=== PATIENT | male | born 1985 | race Caucasian/White ===

== ENCOUNTER 2018-11-16 03:28 | Inpatient (IN) | payer MEDICARE, OTHER ==
[2018-11-15 23:52] LABS: ADD MAN DIFF? NO
[2018-11-15] MEDS: ACETAMINOPHEN 325 MG TAB PO (23:53)
[2018-11-15] MEDS: SODIUM CHLORIDE 0.9% 1L BAG IV* (23:53)
[2018-11-15 23:56] LABS: ABNORMAL IP MESSAGE 1; BASOPHILS % 0.1 % (0.0-2.0); EOSINOPHILS # 0.1 10^3/ul (0.0-0.5); HEMATOCRIT 29.1 % (42.0-52.0); HEMOGLOBIN 9.3 g/dl (14.0-18.0); LYMPHOCYTES # 0.3 10^3/ul (0.8-2.9); MEAN CORPUSCULAR HEMOGLOBIN 28.8 pg (29.0-33.0); MEAN CORPUSCULAR VOLUME 90.1 fl (82.0-101.0); MEAN PLATELET VOLUME 10.3 fl (7.4-10.4); MONOCYTE # 0.6 10^3/ul (0.3-0.9); MONOCYTES % 7.8 % (0.0-11.0); NEUTROPHIL # 6.9 10^3/ul (1.6-7.5); NEUTROPHILS % 86.8 % (39.0-77.0); PLATELET COUNT 110 10^3/UL (140-415); POSITIVE DIFF @See below; RED BLOOD COUNT 3.23 10^6/ul (4.70-6.10); RED CELL DISTRIBUTION WIDTH 13.6 % (11.5-14.5)
[2018-11-16 00:15] LABS: PROTIME 14.3 Sec (11.9-14.9); PT RATIO 1.1
[2018-11-16 00:16] LABS: PARTIAL THROMBOPLASTIN TIME 36.7 Sec (23.0-35.0)
[2018-11-16 00:39] LABS: ANION GAP 13 (5-13); BLOOD UREA NITROGEN 45 mg/dl (7-20); CALCIUM 8.1 mg/dl (8.4-10.2); CARBON DIOXIDE 30 mmol/L (21-31); CHLORIDE 100 mmol/L (97-110); CREATININE 8.32 mg/dl (0.61-1.24); Estimated GFR 7 mL/min (>60); GLUCOSE 98 mg/dl (70-220); POTASSIUM 4.6 mmol/L (3.5-5.1); SODIUM 143 mmol/L (135-144)
[2018-11-16] MEDS: ALBUTEROL 0.083% (NEB) 2.5 MG/3 ML AMP NEB (00:52)
[2018-11-16] MEDS: IPRATROPIUM (NEB) 0.5 MG/2.5 ML AMP NEB (00:52)
[2018-11-16] MEDS: IBUPROFEN 800 MG TAB PO (01:22)
[2018-11-16] MEDS: PIPER-TAZO 3.375 GM IV (PMX) 100 ML IVPB (02:22)
[2018-11-16] MEDS: VANCOMYCIN 1 GM (PMX) 250 ML IVPB (02:23)
[~2018-11-16 03:28] MED LIST: BISACODYL (EC) 5 MG TAB PO; DOCUSATE SODIUM 100 MG CAP PO; NACL 0.9% 3 ML SYG IV; ONDANSETRON 4 MG INJ IV
[2018-11-16 04:26] LABS: LACTIC ACID 0.8 mmol/L (0.5-2.0)
[2018-11-16 05:14] LABS: B-TYPE NATRIURETIC PEPTIDE 61000 PG/ML (0-125)
[2018-11-16] MEDS: PIPER-TAZO 2.25 GM (PMX) 50 ML IVPB ×3 (06:13→22:13)
[2018-11-16] MEDS: HEPARIN 5,000 UNIT/1 ML VIAL SC ×3 (06:13→22:20)
[2018-11-16] MEDS ORDERED: CALCIUM ACETATE 667 MG CAP GTB (07:35)
[2018-11-16] MEDS ORDERED: CALCIUM ACETATE 667 MG CAP PO (07:35)
[2018-11-16] MEDS: CALCIUM ACETATE 667 MG CAP PO ×3 (08:31→17:25)
[2018-11-16] MEDS: hydrALAzine 20 MG INJ IV (08:32)
[2018-11-16] MEDS: LEVALBUTEROL (NEB) 1.25 MG/0.5 ML AMP HHN ×3 (08:42→21:09)
[2018-11-16 12:15] LABS: HEPATITIS B SURFACE ANTIGEN NEGATIVE (NEGATIVE)
[2018-11-16] MEDS: ACETAMINOPHEN 325 MG TAB PO (14:04)
[2018-11-16] MEDS ORDERED: VANCOMYCIN IV PER PHARMACY XX (15:00)
[2018-11-16] MEDS: IBUPROFEN 400 MG TAB PO (15:25)
[2018-11-16] MEDS: VANCOMYCIN 500 MG (PMX) 100 ML IVPB (15:26)
[2018-11-16] MEDS: METOPROLOL (XL) 25 MG TAB PO ×2 (15:26→20:50)
[2018-11-16] MEDS ORDERED: METOPROLOL (XL) 25 MG TAB PO (21:00)
[2018-11-17] MEDS: LEVALBUTEROL (NEB) 1.25 MG/0.5 ML AMP HHN ×4 (02:21→21:26)
[2018-11-17] MEDS: ACETAMINOPHEN 325 MG TAB PO ×3 (02:57→21:52)
[2018-11-17 03:50] LABS: ADD MAN DIFF? NO
[2018-11-17 04:14] LABS: ABNORMAL IP MESSAGE 1; BASOPHILS % 0.2 % (0.0-2.0); EOSINOPHILS % 0.2 % (0.0-7.0); HEMATOCRIT 26.2 % (42.0-52.0); HEMOGLOBIN 8.6 g/dl (14.0-18.0); LYMPHOCYTES # 0.2 10^3/ul (0.8-2.9); LYMPHOCYTES % 4.6 % (15.0-51.0); MEAN CORPUSCULAR HEMOGLOBIN 29.1 pg (29.0-33.0); MEAN CORPUSCULAR HGB CONC 32.8 g/dl (32.0-37.0); MEAN CORPUSCULAR VOLUME 88.5 fl (82.0-101.0); MEAN PLATELET VOLUME 10.6 fl (7.4-10.4); MONOCYTE # 0.3 10^3/ul (0.3-0.9); MONOCYTES % 6.8 % (0.0-11.0); NEUTROPHIL # 4.4 10^3/ul (1.6-7.5); NEUTROPHILS % 87.8 % (39.0-77.0); PLATELET COUNT 91 10^3/UL (140-415); POSITIVE DIFF @See below; RED BLOOD COUNT 2.96 10^6/ul (4.70-6.10); RED CELL DISTRIBUTION WIDTH 13.9 % (11.5-14.5)
[2018-11-17 04:41] LABS: LACTIC ACID 1.1 mmol/L (0.5-2.0)
[2018-11-17 04:42] LABS: ANION GAP 16 (5-13); BLOOD UREA NITROGEN 42 mg/dl (7-20); CALCIUM 9.2 mg/dl (8.4-10.2); CARBON DIOXIDE 30 mmol/L (21-31); CHLORIDE 94 mmol/L (97-110); CREATININE 8.94 mg/dl (0.61-1.24); Estimated GFR 7 mL/min (>60); GLUCOSE 123 mg/dl (70-220); POTASSIUM 4.9 mmol/L (3.5-5.1); SODIUM 140 mmol/L (135-144)
[2018-11-17] MEDS: PIPER-TAZO 2.25 GM (PMX) 50 ML IVPB ×3 (05:27→21:51)
[2018-11-17] MEDS: HEPARIN 5,000 UNIT/1 ML VIAL SC ×3 (05:30→21:58)
[2018-11-17 06:51] LABS: ADD MAN DIFF? NO
[2018-11-17 06:57] LABS: WHITE BLOOD COUNT 4.9 10^3/ul (4.8-10.8)
[2018-11-17 06:57] LABS: ABNORMAL IP MESSAGE 1; BASOPHILS % 0.2 % (0.0-2.0); EOSINOPHILS % 0.2 % (0.0-7.0); HEMATOCRIT 26.4 % (42.0-52.0); HEMOGLOBIN 8.6 g/dl (14.0-18.0); LYMPHOCYTES # 0.2 10^3/ul (0.8-2.9); LYMPHOCYTES % 3.2 % (15.0-51.0); MEAN CORPUSCULAR HEMOGLOBIN 29.1 pg (29.0-33.0); MEAN CORPUSCULAR HGB CONC 32.6 g/dl (32.0-37.0); MEAN CORPUSCULAR VOLUME 89.2 fl (82.0-101.0); MEAN PLATELET VOLUME 10.4 fl (7.4-10.4); MONOCYTE # 0.4 10^3/ul (0.3-0.9); MONOCYTES % 8.7 % (0.0-11.0); NEUTROPHIL # 4.3 10^3/ul (1.6-7.5); NEUTROPHILS % 87.3 % (39.0-77.0); PLATELET COUNT 91 10^3/UL (140-415); POSITIVE DIFF @See below; RED BLOOD COUNT 2.96 10^6/ul (4.70-6.10)
[2018-11-17 07:22] LABS: ALANINE AMINOTRANSFERASE 32 IU/L (13-69); ALBUMIN 3.9 g/dl (3.3-4.9); ALBUMIN/GLOBULIN RATIO 1.44; ALKALINE PHOSPHATASE 55 IU/L (42-121); ANION GAP 15 (5-13); ASPARTATE AMINO TRANSFERASE 32 IU/L (15-46); BILIRUBIN,INDIRECT 0.2 mg/dl (0-1.1); BILIRUBIN,TOTAL 0.2 mg/dl (0.2-1.3); BLOOD UREA NITROGEN 43 mg/dl (7-20); CALCIUM 9.2 mg/dl (8.4-10.2); CARBON DIOXIDE 30 mmol/L (21-31); CHLORIDE 94 mmol/L (97-110); CHOL/HDL RATIO 2.8 RATIO; CHOLESTEROL 101 mg/dl (100-200); CREATININE 9.35 mg/dl (0.61-1.24); Estimated GFR 6 mL/min (>60); GLUCOSE 115 mg/dl (70-220); HDL CHOLESTEROL 35 mg/dl (28-63); LDL CHOLESTEROL,CALCULATED 52 mg/dl; POTASSIUM 5.3 mmol/L (3.5-5.1); SODIUM 139 mmol/L (135-144); TOTAL PROTEIN 6.6 g/dl (6.1-8.1); TRIGLYCERIDES 68 mg/dl (0-149)
[2018-11-17 07:49] LABS: THYROID STIMULATING HORMONE 0.474 MIU/L (0.465-4.680)
[2018-11-17 07:58] LABS: HEMOGLOBIN A1C 5.3 % (0-5.9)
[2018-11-17] MEDS: METOPROLOL (XL) 25 MG TAB PO ×3 (08:30→22:20)
[2018-11-17] MEDS: CALCIUM ACETATE 667 MG CAP PO ×3 (08:31→17:30)
[2018-11-17] MEDS: NIFEdipine (XL) 30 MG TAB PO (09:30)
[2018-11-17 10:31] LABS: LACTIC ACID 1.6 mmol/L (0.5-2.0)
[2018-11-17] MEDS ORDERED: IBUPROFEN 400 MG TAB PO (14:30)
[2018-11-17] MEDS ORDERED: LEVOFLOXACIN 250 MG TAB PO (14:30)
[2018-11-17] MEDS: LEVOFLOXACIN 500 MG TAB PO (15:11)
[2018-11-17] MEDS: EPOETIN 4000 UNITS/1 ML INJ (ESRD) IV (17:32)
[2018-11-17] MEDS ORDERED: METOPROLOL (XL) 50 MG TAB PO (21:00)
[2018-11-18] MEDS: LEVALBUTEROL (NEB) 1.25 MG/0.5 ML AMP HHN ×3 (01:30→14:11)
[2018-11-18 05:20] LABS: ADD MAN DIFF? NO
[2018-11-18 05:24] LABS: ABNORMAL IP MESSAGE 1; BASOPHILS % 0.3 % (0.0-2.0); EOSINOPHILS % 0.3 % (0.0-7.0); HEMATOCRIT 26.9 % (42.0-52.0); HEMOGLOBIN 8.9 g/dl (14.0-18.0); LYMPHOCYTES # 0.3 10^3/ul (0.8-2.9); MEAN CORPUSCULAR HEMOGLOBIN 29.1 pg (29.0-33.0); MEAN CORPUSCULAR HGB CONC 33.1 g/dl (32.0-37.0); MEAN CORPUSCULAR VOLUME 87.9 fl (82.0-101.0); MEAN PLATELET VOLUME 10.3 fl (7.4-10.4); MONOCYTE # 0.6 10^3/ul (0.3-0.9); MONOCYTES % 17.2 % (0.0-11.0); NEUTROPHIL # 2.3 10^3/ul (1.6-7.5); NEUTROPHILS % 71.6 % (39.0-77.0); PLATELET COUNT 91 10^3/UL (140-415); POSITIVE DIFF @See below; RED BLOOD COUNT 3.06 10^6/ul (4.70-6.10); RED CELL DISTRIBUTION WIDTH 13.9 % (11.5-14.5)
[2018-11-18 05:24] LABS: WHITE BLOOD COUNT 3.2 10^3/ul (4.8-10.8)
[2018-11-18] MEDS: PIPER-TAZO 2.25 GM (PMX) 50 ML IVPB (05:31)
[2018-11-18] MEDS: HEPARIN 5,000 UNIT/1 ML VIAL SC ×2 (05:32→14:19)
[2018-11-18 05:36] LABS: IRON 29 ug/dl (35-150)
[2018-11-18 05:37] LABS: ANION GAP 12 (5-13); BLOOD UREA NITROGEN 39 mg/dl (7-20); CALCIUM 8.9 mg/dl (8.4-10.2); CARBON DIOXIDE 30 mmol/L (21-31); CHLORIDE 95 mmol/L (97-110); CREATININE 8.84 mg/dl (0.61-1.24); Estimated GFR 7 mL/min (>60); GLUCOSE 96 mg/dl (70-220); POTASSIUM 4.8 mmol/L (3.5-5.1); SODIUM 137 mmol/L (135-144)
[2018-11-18 05:42] LABS: VANCOMYCIN,RANDOM 13.2 ug/ml
[2018-11-18 05:45] LABS: % IRON SATURATION 12 % SAT (22-52); TOTAL IRON BINDING CAPACITY 244 ug/dl (241-421)
[2018-11-18] MEDS: NIFEdipine (XL) 30 MG TAB PO ×2 (08:24→11:47)
[2018-11-18] MEDS: CALCIUM ACETATE 667 MG CAP PO ×2 (08:24→11:46)
[2018-11-18] MEDS: METOPROLOL (XL) 25 MG TAB PO (08:25)
[2018-11-18] MEDS: FERROUS SULFATE (EC) 325 MG TAB PO (11:47)
[2018-11-18] MEDS ORDERED: VANCOMYCIN 1 GM 250 ML IVPB (12:00)
[2018-11-19] MEDS ORDERED: NIFEdipine (XL) 60 MG TAB PO (09:00)
[2018-11-19] MEDS ORDERED: LEVOFLOXACIN 250 MG TAB PO (14:30)
== END 2018-11-18 16:55 | disposition home or self-care (01) | DRG 193 ==
LOC: E/R 22:00 → PP2 03:28
PROC: 5A1D70Z Performance of Urinary Filtration, Intermittent, Less than 6 Hours Per Day (ICD-10-PCS; principal; 2018-11-16)
DX: J18.9 Pneumonia, unspecified organism (principal); N18.6 End stage renal disease; I13.2 Hypertensive heart and chronic kidney disease with heart failure and with stage 5 chronic kidney disease, or end stage renal disease; E11.22 Type 2 diabetes mellitus with diabetic chronic kidney disease; I50.9 Heart failure, unspecified; Z99.2 Dependence on renal dialysis; D63.8 Anemia in other chronic diseases classified elsewhere
CPT/HCPCS: 36415; 71045; 80048; 80053; 80061; 80202; 83036; 83540; 83605; 83735; 83880; 84443; 84484; 85025; 85610; 85730; 87040; 87340; 87400; 90935; 93005; 93306; 94640; 94664; 99285-25